=== PATIENT | male | born 1985 | race Caucasian/White ===

== ENCOUNTER 2016-08-21 13:59 | Emergency (ER) | payer SELFPAY ==
[~2016-08-21] VITALS: Ht 182.9 cm; Wt 83.9 kg
--- NOTE | 2016-08-21 14:31 | NUR ---
Patient discharged to home in stable conditon. Written and verbal after care instructions given to patient. Patient verbalizes understanding of instructions.
== END 2016-08-21 14:32 | disposition home or self-care (01) ==
LOC: ER 13:59
DX: K42.9 Umbilical hernia without obstruction or gangrene (principal)
CPT/HCPCS: 99283; A4663

== ENCOUNTER 2024-03-31 22:29 | Emergency (ER) | payer MEDICAID | END 2024-04-01 01:00 | disposition left against medical advice (07) | LOC: ER 22:29 | DX: M79.606 Pain in leg, unspecified (principal); Z53.21 Procedure and treatment not carried out due to patient leaving prior to being seen by health care provider ==